=== PATIENT | female | born 1970 | race Caucasian/White ===

== ENCOUNTER 2017-03-07 12:58 | Emergency (ER) | payer OTHER, MEDICAID ==
[~2017-03-07] VITALS: Ht 160 cm; Wt 43.1 kg
[~2017-03-07 12:58] MED LIST: BENZ1TAB24 PO; BISA10SU1 RC; LACO100T PO; LAMO150T GT; LEVO500T6 GT; LORA10OD44 PO; MEGE40SU6 GT; ONDA8TAB13 PO; RANI-287 PO; SUCR1TAB35 PO; ZONI100C5 PO; [UNRECOGNIZED DRUG - CODE] PO; [UNRECOGNIZED DRUG - CODE] PO; [UNRECOGNIZED DRUG - CODE] PO; [UNRECOGNIZED DRUG - CODE] TP
[2017-03-07 13:01] VITALS: BP 120/72
--- NOTE | 2017-03-07 13:03 | NUR ---
Pt placed in bed 6 by EMS.
--- NOTE | 2017-03-07 13:18 | NUR ---
46/F biba from a boarding care facility for a dislodged g-tube. Per EMS, patient had received medications this morning and when staff went to start feeding on patient, g-tube was gone. EMS brought g-tube with patient, 24Fr with balloon inflated. Abdominal binder in place. No bleeding from stoma. Pt is awake and alert, non verbal, unable to make needs known. Contractures to all 4 extremities. Lungs clear bilaterally. Abdomen soft, hyperactive bowel sounds x4 quadrants. Pt in a brief. Incontinent of urine and bowel. Pt placed on cardiac tech, pulse oximetry, blood pressure monitoring. VSS.
[2017-03-07] MEDS ORDERED: LIDOCAINE JELLY 2% 30 ML TUBE TP ONE (14:10)
--- NOTE | 2017-03-07 14:30 | NUR ---
Dr. Ghosh at bedside for g-tube replacement. 18 Fr.
--- NOTE | 2017-03-07 14:52 | NUR ---
X-Ray at bedside.
--- NOTE | 2017-03-07 15:20 | NUR ---
Patient appears to be resting comfortably in bed. Vital Signs within normal limits. Respirations even and unlabored. Caregiver at bedside.
[2017-03-07 16:30] VITALS: BP 111/72
--- NOTE | 2017-03-07 16:31 | NUR ---
Patient discharged with v/s stable. Written and verbal after care instructions given and explained. Patient verbalized understanding. Ambulance Transport with to shelter. All questions addressed prior to discharge. Advised to follow up with PMD.
--- NOTE | 2017-03-07 17:35 | NUR ---
Pt still in bed, waiting to be picked up. Caregiver at bedside. [facility] to spanish moss picker patient at 1930.
--- NOTE | 2017-03-07 17:53 | NUR ---
Patient's brief changed. Pt placed back into her clothes. I updated caregiver on pick out hand time. Caregiver left. I advised her that she would be picked up at 1930. Pt placed in position of comfort.
--- NOTE | 2017-03-07 18:43 | NUR ---
Card Tender from [facility] arrived to pick up and delivery driver patient. [facility] transport cancelled.
--- NOTE | 2017-03-07 18:47 | NUR ---
Patient discharged with v/s stable. Written and verbal after care instructions given and explained. Patient verbalized understanding. Wheel Chair Assisted with to car. All questions addressed prior to discharge. Advised to follow up with PMD.
== END 2017-03-07 18:47 | disposition home or self-care (01) ==
LOC: MED 13:00
DX: Z43.1 Encounter for attention to gastrostomy (principal); Z88.0 Allergy status to penicillin; Z88.2 Allergy status to sulfonamides; Z88.1 Allergy status to other antibiotic agents
CPT/HCPCS: 43760; 74241; 99284

== ENCOUNTER 2017-12-21 05:40 | Emergency (ER) | payer OTHER, MEDICAID ==
[~2017-12-21] VITALS: Ht 154.9 cm; Wt 54.4 kg
[2017-12-21 05:40] VITALS: BP 91/58
[~2017-12-21 05:40] MED LIST changes: -BENZ1TAB24 PO; +BENZ1TAB42 PO; +BISM262O11 PO; +CALC-105 PO; -LEVO500T6 GT; -[UNRECOGNIZED DRUG - CODE] PO; -[UNRECOGNIZED DRUG - CODE] PO
--- NOTE | 2017-12-21 05:40 | NUR ---
PATIENT BIB BLS TO ER BED 11.
--- NOTE | 2017-12-21 05:40 | NUR ---
BIBA FOR GTT MALFUNCTION. PT DEVELOPMENTALLY DELAYED. NO N/V/D; LUNGS CLEAR BL; HR EVEN AND REGULAR; NO FEVER, CP, SOB, OR COUGH AT THIS TIME;NO NOTED PAIN NOTED AT THIS TIME; VSS; PATIENT POSITIONED FOR COMFORT; HOB ELEVATED; BEDRAILS UP X2; BED DOWN. ER MD MADE AWARE OF PT STATUS.
--- NOTE | 2017-12-21 05:45 | NUR ---
# [address] RIBEIRO. PT TOLERATED WELL.
--- NOTE | 2017-12-21 06:20 | NUR ---
X-Ray at bedside to verify GTT PLACEMENT
--- NOTE | 2017-12-21 07:25 | NUR ---
Patient discharged with v/s stable. Written and verbal after care instructions given and explained. Patient verbalized understanding. Ambulance Transport with to [facility]. All questions addressed prior to discharge. Advised to follow up with PMD.
[2017-12-21 07:26] VITALS: BP 100/66
== END 2017-12-21 07:25 | disposition home or self-care (01) ==
LOC: MED 05:40
DX: K94.23 Gastrostomy malfunction (principal); K21.9 Gastro-esophageal reflux disease without esophagitis; Z88.0 Allergy status to penicillin; Z88.1 Allergy status to other antibiotic agents; Z88.2 Allergy status to sulfonamides; Z88.8 Allergy status to other drugs, medicaments and biological substances
CPT/HCPCS: 43760; 74241; 99284; Q0092

== ENCOUNTER 2017-12-22 17:52 | Emergency (ER) | payer OTHER, MEDICAID ==
[~2017-12-22] VITALS: Ht 134.6 cm; Wt 46.7 kg
[2017-12-22 17:56] VITALS: BP 102/64
--- NOTE | 2017-12-22 18:02 | NUR ---
PT FROM [facility] G-TUBE DISLODGEMENT---EMS WAS NOT HANDED THE G-TUBE PT IN NAD, RESP EVEN AND UNLABORED, ON RA@98%. NO DRAINAGE NOTED FROM STOMA, C/D/I. NO BLEEDING. 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
--- NOTE | 2017-12-22 18:22 | NUR ---
DR SUTHERLAND AT BEDSIDE FOR GT INSERTION
--- NOTE | 2017-12-22 18:39 | NUR ---
EVELINE, FELLER HAND INFORMED OF DISCHARGE, IS CALLING AMBULANCE TO ARRANGE FOR TRANSFER.
--- NOTE | 2017-12-22 18:40 | NUR ---
XRAY AT BEDSIDE FOR POST GT PLACEMENT
--- NOTE | 2017-12-22 19:04 | NUR ---
WAITING FOR XRAY RESULTS, DR SORIANO UPDATED.
--- NOTE | 2017-12-22 19:10 | NUR ---
RECEIVED REPORT FROM KRYSTAL PIZANO
--- NOTE | 2017-12-22 19:40 | NUR ---
Patient discharged with v/s stable. Written and verbal after care instructions given and explained TO PRIMARY CAREGIVER. Patient verbalized understanding. Ambulatory with steady gait. All questions addressed prior to discharge. Advised to follow up with PMD.
--- NOTE | 2017-12-22 20:20 | NUR ---
PT PICKED UP BY [facility]SP[facility] BACK TO [facility]
[2017-12-22 20:22] VITALS: BP 106/67
== END 2017-12-22 20:20 ==
LOC: MED 17:52
DX: K94.23 Gastrostomy malfunction (principal); K21.9 Gastro-esophageal reflux disease without esophagitis; Z88.0 Allergy status to penicillin; Z88.2 Allergy status to sulfonamides; Z88.1 Allergy status to other antibiotic agents; Z88.8 Allergy status to other drugs, medicaments and biological substances
CPT/HCPCS: 43760; 74241; 99284; Q0092; C1758

== ENCOUNTER 2018-06-23 22:16 | Inpatient (IN) | payer OTHER, MEDICAID ==
[~2018-06-23] VITALS: Ht 162.6 cm; Wt 44.0 kg
[2018-06-23 22:16] VITALS: BP 95/51
[~2018-06-23 22:16] MED LIST changes: -BENZ1TAB42 PO; +BENZ1TAB99 PO
--- NOTE | 2018-06-23 22:16 | NUR ---
PATIENT BIB BLS TO ER BED 9.
--- NOTE | 2018-06-23 22:16 | NUR ---
47/F BIBA FROM PT BIBA FOR WITNESSED SEIZURE X15 SECONDS. LAST SEIZURE WAS SEVERAL YEARS AGO. NO ORAL TRAUMA OR OTHER INJURIES NOTED. NO RESPIRATORY DISTRESS. SEZIURE PRECAUTIONS IMPLEMENTED. PMH---HYDROCEPHALUS, MENTAL DISABILITY, SZ, VNS, CONSTIPATION, NEUROGENIC BLADDER, GASTRITIS, PNEUMONIA, OSTEOPEROSIS
[2018-06-23] MEDS ORDERED: NACL 0.9% 1,000 ML IV ONE (22:40)
[2018-06-23] MEDS ORDERED: VITD1000 GT (22:53)
[2018-06-23] MEDS ORDERED: CALC-53 GT (22:53)
[2018-06-23] MEDS ORDERED: MULT-405 PO (22:53)
[2018-06-23] MEDS ORDERED: DOCU100C16 GT (22:53)
[2018-06-23] MEDS ORDERED: PRO5 GT (22:53)
[2018-06-23] MEDS ORDERED: LAM200 GT (22:53)
[2018-06-23] MEDS ORDERED: MIRABULK GT (22:53)
[2018-06-23] MEDS ORDERED: ASPI81CT89 GT (22:53)
[2018-06-23 23:03] LABS: BASOPHILS # (AUTO) 0.1 K/uL (0.00-0.22); BASOPHILS % (AUTO) 0.8 % (0.0-2.0); EOSINOPHILS % (AUTO) 0.4 % (0.0-4.0); HEMATOCRIT 39.2 % (36-48); HEMOGLOBIN 13.3 g/dL (12.0-16.0); LYMPHOCYTES # (AUTO) 0.8 K/uL (2.5-16.5); MEAN CORPUSCULAR HEMOGLOBIN 33 pg (27-31); MEAN CORPUSCULAR HGB CONC 34 g/dL (33-37); MEAN CORPUSCULAR VOLUME 95.5 fL (80-94); MONOCYTES # (AUTO) 0.5 K/uL (0.8-1.0); MONOCYTES % (AUTO) 5.8 % (1.7-9.3); NEUTROPHILS # (AUTO) 7.8 K/uL (1.8-7.7); NEUTROPHILS % (AUTO) 84.2 % (42.2-75.2); PLATELET COUNT (AUTO) 259 K/uL (140-450); RED BLOOD CELL COUNT(AUTO) 4.11 MIL/uL (4.20-5.40); RED CELL DISTRIBUTION WIDTH 13.2 % (11.6-13.7); WHITE BLOOD COUNT (AUTO) 9.3 K/uL (4.8-10.8)
[2018-06-23 23:17] LABS: ANION GAP 15.4 (8-16); CARBON DIOXIDE 22.7 mmol/L (21-32); CREATININE 0.5 mg/dL (0.6-1.3); POTASSIUM 4.1 mmol/L (3.5-5.1)
[2018-06-23 23:22] LABS: LYMPHOCYTES % (AUTO) 8.8 % (20.5-51.1)
[2018-06-23 23:26] LABS: ALBUMIN 3.3 g/dL (3.4-5.0); PROTHROMBIN TIME 9.3 secs (10.8-13.4); TOTAL BILIRUBIN 0.3 mg/dL (0.0-1.0)
[2018-06-24] LABS: BILIRUBIN,URINE NEGATIVE (NEGATIVE); BLOOD, URINE 3+ (NEGATIVE); COLOR,URINE YELLOW (YELLOW); LEUKOCYTE ESTERASE ,URINE TRACE (NEGATIVE); UGLUCOSE NEGATIVE (NEGATIVE)
[2018-06-24] MEDS ORDERED: ERTAPENEM SODIUM 1,000 MG in NACL 0.9% 50 ML IV ONE ×2
[2018-06-24] MEDS ORDERED: ERTAPENEM SODIUM 1,000 MG VIAL IV ONE (00:10)
[2018-06-24 00:11] LABS: RBC,URINE 0-5 (RARE) /HPF (0-5); WBC,URINE 0-5 (RARE) /HPF (0-5)
--- NOTE | 2018-06-24 00:20 | NUR ---
Patient appears to be resting comfortably in bed. Respirations even and unlabored. NO FURTHER SEIZURES NOTED. CAREGIVER AT BEDSIDE
[2018-06-24] MEDS ORDERED: LORazepam 2 MG/ML VIAL IM/IVP PRN (00:55)
[2018-06-24] MEDS ORDERED: DOCUSATE SODIUM 100 MG GELCAP PO PRN (00:55)
[2018-06-24] MEDS ORDERED: ACETAMINOPHEN 325 MG TAB PO PRN (00:55)
[2018-06-24] MEDS ORDERED: ONDANSETRON 4 MG/2 ML VIAL IM/IVP PRN (00:55)
[2018-06-24] MEDS ORDERED: MORPHINE SULFATE 2 MG/ML SYR IVP PRN (00:55)
[2018-06-24] MEDS ORDERED: ZOLPIDEM 5 MG TAB PO PRN (00:55)
[2018-06-24] MEDS ORDERED: HYDROcodone/APAP 5/325 MG 1 TAB TAB PO PRN (00:55)
--- NOTE | 2018-06-24 01:20 | NUR ---
APatient will be admitted to care of [facility]. Admited to ICU. Will go to room 1. Belongings list completed. Report to RICKEY PIZANO.
[2018-06-24 01:25] VITALS: BP 116/84
--- NOTE | 2018-06-24 01:25 | NUR ---
PT ARRIVED ON UNIT VIA GURNEY. AFEBRILE. AOX0. APHASIC. OPENS EYES SPONTANEOUSLY. NONTRACKING. R SHUNT FOR VAGAL NERVE STIMULATION NOTED. LUNG SOUNDS DIMINISHED BILAT. ROOM AIR. SINUS SISI ON MONITOR. NO EDEMA NO JVD NOTED. NPO EXCEPT MEDS. GTUBE PATENT. NO RESIDUAL NOTED. INCONTINENT TO BOWEL AND BLADDER. IV SITE L WRIST 22G. SEIZURE PRECAUTIONS IMPLEMENTED. CONTACT PRECAUTIONS IMPLEMENTED. SKIN WARM, DRY, INTACT. NO SIGNS OF ACUTE DISTRESS. BED IN LOWEST POSITION. SR UP X 4. CALL LIGHT WITHIN REACH. WILL CONTINUE TO MONITOR
[2018-06-24 01:35] LABS: APPEARANCE,URINE CLOUDY (CLEAR); NITRITE, URINE POSITIVE (NEGATIVE)
[2018-06-24 01:43] LABS: BARBITURATE, URINE NEG. ng/ml (NEG <=200); BENZODIAZEPINE, URINE NEG. ng/mL (NEG <=200); CANNABINOID, URINE NEG. ng/mL (NEG <=50); COCAINE, URINE NEG. ng/mL (NEG <=300); OPIATE, URINE NEG. ng/mL (NEG <=2000); PHENCYCLIDINE SCREEN,URINE NEG. ng/mL (NEG <=25)
[2018-06-24] MEDS: NACL 0.9% 1,000 ML IV SCH ×2 (01:45→13:22)
[2018-06-24 01:52] LABS: FREE T4 (FREE THYROXINE) 1.05 ng/dL (0.76-1.46); MAGNESIUM 1.6 mg/dL (1.8-2.4); PHOSPHORUS 2.5 mg/dL (2.5-4.9); THYROID STIMULATING HORMONE 0.36 uIU/mL (0.34-3.74)
--- NOTE | 2018-06-24 02:30 | NUR ---
DR SELLERS AT BEDSIDE TO EVALUATE PATIENT. WILL CONTINUE TO FOLLOW UP ANY ADDITIONAL ORDERS.
[2018-06-24] MEDS ORDERED: MAG SULF 2000 MG/WATER PREMIX 50 ML IV ONE (03:30)
--- NOTE | 2018-06-24 03:33 | NUR ---
PT TRANSPORTED TO RADIOLOGY DEPARTMENT FOR CT SCAN ORDER.
--- NOTE | 2018-06-24 03:45 | NUR ---
STARTED FEEDING JEVITY 1.2 @ 65ML/HR WITH H20 100ML Q6H.
--- NOTE | 2018-06-24 03:45 | NUR ---
MG LEVEL 1.6. MAG SULFATE GIVEN ORDERED.
[2018-06-24 04:00] VITALS: BP 146/97
--- NOTE | 2018-06-24 04:46 | NUR ---
RECEIVED A CALL FROM DR. SELLERS TO INCREASE IV FLUID TO 100ML/HR.
[2018-06-24] MEDS: MIDODRINE 5 MG TAB GT SCH ×3 (05:00→20:04)
--- NOTE | 2018-06-24 05:06 | NUR ---
LAB AT BEDSIDE AT THIS TIME. NO SIGNS OF ACUTE DISTRESS NOTED. WILL CONTINUE TO FOLLOW UP LAB RESULTS.
--- NOTE | 2018-06-24 06:40 | NUR ---
PT REMOVED IV AT THIS TIME. ATTEMPTING TO REINSERT IV
--- NOTE | 2018-06-24 07:05 | NUR ---
ENDORSED CARE TO INCOMING SHIFT. PT CLEAN AND DRY. BED IN LOWEST POSITION.
--- NOTE | 2018-06-24 07:05 | NUR ---
RECEIVED REPORT FROM RICKEY PIZANO. PT IS AWAKE; A&0X4; NONVERBAL BUT MAKES NOISES. PT IS CONTRACTED ON UPPER AND LOWER EXTREMITIES. 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 PERRL. PT DOES NOT FOLLOW COMMANDS. PT HAS DIMINISHED BREATH SOUNDS BILATERALLY; PT IS ON ROOM AIR. PT HAS A G-TUBE; FEEDING ON JEVITY 1.2 [place]. G-TUBE PORT IS ASYMPTOMATIC, SKIN IS INTACT AND NOT REDDENED.; ZERO RESIDUALS; BOWEL SOUNDS ACTIVE AND PRESENT IN ALL 4 QUADRANTS. S1S2 HEARD; NO EXTRA HEART SOUNDS; NO MURMUR PRESENT. PT IS INCONTINENT TO BOWEL AND BLADDER. PT HAS A ROAD CONDUCTOR SHUNT PALPABLE AT THE BASE OF HER SKULL ON THE POSTERIOR RIGHT SIDE. PT HAS A VAGAL NERVE STIMULATOR ON HER LEFT CHEST (SCAR PRESENT). PT HAS SCDS ON. BED LOCKED AND IN LOWEST POSITION. CALL LIGHT WITHIN REACH.
--- NOTE | 2018-06-24 07:49 | NUR ---
THE SPEEDER FRAME TENDER OF THE HOME THAT THE PT LIVES IN BROUGHT BY THE PATIENTS HOME MEDICATION. WILL GIVE TO PHARMACY Addendum: 06/24/18 at 1002 by January Karimi RN SPEEDER FRAME TENDER ALSO BROUGHT PT'S VNS MAGNET; AT BESIDE LABELED WITH PT'S NAME.
[2018-06-24 08:00] VITALS: BP 101/68
--- NOTE | 2018-06-24 08:34 | NUR ---
GAVE PTS HOME MEDICATION TO PHARMACY
[2018-06-24] MEDS ORDERED: HYDRAGUARD CREAM TP PRN (08:40)
--- NOTE | 2018-06-24 08:49 | NUR ---
LAB AT BEDSIDE
[2018-06-24] MEDS ORDERED: VITAMIN D3 GT SCH (09:00)
[2018-06-24] MEDS ORDERED: BENZTROPINE 1 MG TAB PO SCH (09:00)
[2018-06-24] MEDS ORDERED: Zonisamide 100 MG CAPSULES GT SCH (09:00)
[2018-06-24] MEDS ORDERED: CALCIUM CARBONATE GT SCH (09:00)
[2018-06-24] MEDS ORDERED: [UNRECOGNIZED DRUG - OTHER] GT SCH (09:00)
[2018-06-24] MEDS ORDERED: DOCUSATE SODIUM 250 MG GT SCH (09:00)
[2018-06-24] MEDS ORDERED: MULTIVITAMIN PO SCH (09:00)
[2018-06-24] MEDS: CHLORHEXADINE GLUC 2% CLOTH TP SCH (09:00)
[2018-06-24 09:32] LABS: ANION GAP 13.2 (8-16); CARBON DIOXIDE 22.4 mmol/L (21-32); CREATININE 0.5 mg/dL (0.6-1.3); POTASSIUM 3.6 mmol/L (3.5-5.1)
[2018-06-24 09:33] LABS: MAGNESIUM 2.7 mg/dL (1.8-2.4); PHOSPHORUS 2.1 mg/dL (2.5-4.9)
[2018-06-24 09:34] LABS: CHOL/HDL RATIO 2.3 (1-4.5)
--- NOTE | 2018-06-24 09:42 | NUR ---
ULTRASOUND AT BEDSIDE.
--- NOTE | 2018-06-24 09:49 | NUR ---
PATIENT HAS BEEN SCREENED AND CATEGORIZED HIGH NUTRITION RISK. PATIENT WILL BE SEEN WITHIN 1-2 DAYS OF ADMISSION. 06/24/18 06/25/18 ELISABET SHEPPARD MBA, RD
--- NOTE | 2018-06-24 10:00 | NUR ---
SEIZURE RAIL PADS APPLIED TO RAILS AND PRECAUTION SIGN POSTED.
[2018-06-24] MEDS: POLYETHYLENE GLYCOL 17 GM/PKT GT SCH (10:22)
[2018-06-24] MEDS: MULTIVITAMIN 5 ML ORASYR GT SCH (10:22)
[2018-06-24] MEDS: ASPIRIN 81 MG TAB.CHEW GT SCH (10:23)
[2018-06-24] MEDS: FAMOTIDINE 20 MG TAB GT SCH (10:24)
[2018-06-24] MEDS: NEOMYCIN/POLYMYXIN/HC OT SOL. 10 ML BTL RIGHT EAR SCH ×4 (10:24→20:05)
[2018-06-24] MEDS: CHOLECALCIFEROL 1,000 IU TAB GT SCH (10:25)
[2018-06-24] MEDS: MUPIROCIN CA NASAL 2% 1GM TUBE NS SCH (10:27)
[2018-06-24] MEDS: LACTOBACILLUS RHAMNOSUS GG 1 EACH CAP GT SCH (10:27)
[2018-06-24] MEDS: DOCUSATE 100 MG/10 ML UDC GT SCH (10:28)
[2018-06-24] MEDS: BENZTROPINE 1 MG TAB PO SCH ×2 (10:29→20:04)
[2018-06-24] MEDS: CALCIUM CARB/VIT-D 500 MG/200 IU 1 TAB GT SCH (10:30)
[2018-06-24] MEDS: TAMSULOSIN 0.4 MG CAP PO SCH (10:47)
[2018-06-24 12:00] VITALS: BP 113/60
--- NOTE | 2018-06-24 12:37 | NUR ---
Pt is alert, FLACC 0. Pt is positioned for comfort, bed locked and in lowest position, call light within reach
--- NOTE | 2018-06-24 14:00 | NUR ---
Pt is sleeping; FLACC 0
--- NOTE | 2018-06-24 14:29 | NUR ---
Dr. Ponce came to see pt. Addendum: 06/24/18 at 1633 by January Karimi RN Dr. Ponce feels the pt is okay to be d/c based upon current neurological condition (not having seizures since last night) once UTI is cleared. Does not suggest a change of medication.
[2018-06-24 16:00] VITALS: BP 93/37
--- NOTE | 2018-06-24 16:55 | NUR ---
Gave pt a bed bath, lotion, changed bedding and gown. Repositioned pt, bed locked and lowered, side rails elevated, alarm on. Call light within reach
[2018-06-24 17:31] LABS: BASOPHILS % (AUTO) 0.3 % (0.0-2.0); EOSINOPHILS % (AUTO) 0.2 % (0.0-4.0); HEMATOCRIT 39.7 % (36-48); LYMPHOCYTES # (AUTO) 1.7 K/uL (2.5-16.5); LYMPHOCYTES % (AUTO) 13.1 % (20.5-51.1); MEAN CORPUSCULAR HEMOGLOBIN 32 pg (27-31); MEAN CORPUSCULAR HGB CONC 33 g/dL (33-37); MEAN CORPUSCULAR VOLUME 97.4 fL (80-94); MONOCYTES # (AUTO) 2.3 K/uL (0.8-1.0); MONOCYTES % (AUTO) 17.9 % (1.7-9.3); NEUTROPHILS # (AUTO) 8.9 K/uL (1.8-7.7); NEUTROPHILS % (AUTO) 68.5 % (42.2-75.2); PLATELET COUNT (AUTO) 214 K/uL (140-450); RED BLOOD CELL COUNT(AUTO) 4.08 MIL/uL (4.20-5.40); RED CELL DISTRIBUTION WIDTH 13.5 % (11.6-13.7)
--- NOTE | 2018-06-24 18:45 | NUR ---
Pt resting; arouses to name being called. Repositioned pt.
--- NOTE | 2018-06-24 19:08 | NUR ---
RECEIVED REPORT FROM AM NURSE. PT CLEAN AND DRY. AOX0. APHASIC. NO SIGNS OF ACUTE DISTRESS NOTED. AFEBRILE. FLACC 0. RADIO DIVISION CAPTAIN SHUNT L NOTED. LUNG SOUNDS CLEAR. ON ROOM AIR. SINUS RHYTHM ON MONITOR. GTUBE TO LUQ. ABD SOFT, NONTENDER, GTUBE PATENT. ON JEVITY 1.2 @65ML/HR WITH 100ML H20 Q6H. IV SITE R WRIST 24G. SKIN REDNESS NOTED THROUGHOUT PERIAREA. BED IN LOWEST POSITION. SIDE RAILS UP X4. SEIZURE PRECAUTIONS IMPLEMENTED. ON CONTACT PRECAUTION FOR HX MRSA. CALL LIGHT WITHIN REACH. WILL CONTINUE TO MONITOR.
[2018-06-24 20:00] VITALS: BP 120/62
[2018-06-24] MEDS: ZONISAMIDE 100 MG GT SCH (20:04)
--- NOTE | 2018-06-24 20:15 | NUR ---
PT REPOSITIONED AT THIS TIME. NO SIGNS OF ACUTE DISTRESS NOTED.
--- NOTE | 2018-06-24 21:58 | NUR ---
PT REPOSITIONED AT THIS TIME. NO SIGNS OF ACUTE DISTRESS NOTED.
[2018-06-25] VITALS: BP 89/50
--- NOTE | 2018-06-25 00:26 | NUR ---
NEW FEEDING TUBE CHANGED. PATIENT REPOSITIONED. NO SIGNS OF ACUTE DISTRESS AT THIS TIME.
--- NOTE | 2018-06-25 00:51 | NUR ---
PATIENT CHANGED AND REPOSITIONED AT THIS TIME.
[2018-06-25] MEDS: NACL 0.9% 1,000 ML IV SCH ×3 (01:50→12:23)
[2018-06-25 04:00] VITALS: BP 87/44
--- NOTE | 2018-06-25 04:08 | NUR ---
PT ASLEEP AT THIS TIME. FLACC 0. NO SIGNS OF ACUTE DISTRESS NOTED. PT REPOSITIONED TO RIGHT SIDE
--- NOTE | 2018-06-25 04:34 | NUR ---
LAB AT BEDSIDE TO DO AM BLOOD DRAWS. NO SIGNS OF ACUTE DISTRESS NOTED. WILL FOLLOW UP ANY ABNORMAL VALUES.
[2018-06-25 05:01] LABS: BASOPHILS # (AUTO) 0.1 K/uL (0.00-0.22); EOSINOPHILS # (AUTO) 0.1 K/uL (0-0.4); HEMATOCRIT 36.9 % (36-48); RED CELL DISTRIBUTION WIDTH 13.6 % (11.6-13.7)
[2018-06-25 05:03] LABS: BASOPHILS % (AUTO) 0.8 % (0.0-2.0); HEMOGLOBIN 12.3 g/dL (12.0-16.0); LYMPHOCYTES # (AUTO) 2.1 K/uL (2.5-16.5); LYMPHOCYTES % (AUTO) 20.8 % (20.5-51.1); MEAN CORPUSCULAR HEMOGLOBIN 33 pg (27-31); MEAN CORPUSCULAR HGB CONC 33 g/dL (33-37); MEAN CORPUSCULAR VOLUME 97.8 fL (80-94); MONOCYTES # (AUTO) 0.9 K/uL (0.8-1.0); NEUTROPHILS # (AUTO) 6.9 K/uL (1.8-7.7); NEUTROPHILS % (AUTO) 68.4 % (42.2-75.2); PLATELET COUNT (AUTO) 206 K/uL (140-450); RED BLOOD CELL COUNT(AUTO) 3.77 MIL/uL (4.20-5.40); WHITE BLOOD COUNT (AUTO) 10.1 K/uL (4.8-10.8)
[2018-06-25] MEDS: ERTAPENEM SODIUM 1,000 MG in NACL 0.9% 50 ML IV SCH (05:05)
[2018-06-25] MEDS: MIDODRINE 5 MG TAB GT SCH ×3 (05:05→20:30)
[2018-06-25] MEDS: Zonisamide 100 MG CAPSULES GT SCH (06:02)
--- NOTE | 2018-06-25 06:32 | NUR ---
TRANSFERRED PT TO [facility] VIA GURNEY. NO SIGNS OF ACUTE DISTRESS NOTED. REPORT GIVEN TO [facility] NURSE FOR CONTINUITY OF CARE
--- NOTE | 2018-06-25 06:35 | NUR ---
RECEIVED PATIENT TRANSFERRED FROM ICU VIA BED. PATIENT IN STABLE CONDITION. V/S TAKEN AND RECORDED. SEIZURE PRECAUTION APPLIED. NO S/S OF DISTRESS NOTED AT THIS TIME. WILL CONTINUE TO MONITOR.
[2018-06-25 07:07] LABS: ANION GAP 13.4 (8-16); CARBON DIOXIDE 19.9 mmol/L (21-32); CREATININE 0.5 mg/dL (0.6-1.3); POTASSIUM 3.3 mmol/L (3.5-5.1)
[2018-06-25 07:11] LABS: MAGNESIUM 1.8 mg/dL (1.8-2.4); PHOSPHORUS 1.6 mg/dL (2.5-4.9)
--- NOTE | 2018-06-25 07:20 | NUR ---
ENDORSEMENT GIVEN TO AM SHIFT NURSE AT BEDSIDE FOR CONTINUITY OF CARE. PATIENT IN STABLE CONDITION.
--- NOTE | 2018-06-25 07:21 | NUR ---
RECEIVED REPORT FROM THE PRODUCT SCIENTIST NURSE AT BEDSIDE FOR CONTINUITY OF CARE. PT WAS A TRANSFER FROM ICU EARLY THIS MORNING. PT IS AWAKE, NOT ORIENTED. PT HAS MENTAL DELAY. INTRODUCED MYSELF AND UPDATED THE BOARD. PT HAS GTUBE FEEDING: JEVITY 65ML/HR. H20 100ML/Q6HR. SCD'S IN PLACE. IV ON R FA 24G NS 100ML INFUSING. L ARM SHUNT. SKIN INTACT. PLAN FOR TODAY: D/C TODAY BACK TO BOARD AND CARE. WILL CONTINUE TO MONITOR PT. Addendum: 06/25/18 at 1028 by Zoë Cho RN NOT A L ARM SHUNT. IT IS A STOCK LIFTER SHUNT IN THE BRAIN FOR PT'S HX OF HYDROCEPHALUS.
[2018-06-25 08:00] VITALS: BP 110/56
[2018-06-25] MEDS: ASPIRIN 81 MG TAB.CHEW GT SCH (09:24)
[2018-06-25] MEDS: LACTOBACILLUS RHAMNOSUS GG 1 EACH CAP GT SCH (09:24)
[2018-06-25] MEDS: DOCUSATE 100 MG/10 ML UDC GT SCH (09:25)
[2018-06-25] MEDS: FAMOTIDINE 20 MG TAB GT SCH (09:26)
[2018-06-25] MEDS: POLYETHYLENE GLYCOL 17 GM/PKT GT SCH (09:26)
[2018-06-25] MEDS: CHOLECALCIFEROL 1,000 IU TAB GT SCH (09:27)
[2018-06-25] MEDS: MULTIVITAMIN 5 ML ORASYR GT SCH (09:27)
[2018-06-25] MEDS: TAMSULOSIN 0.4 MG CAP PO SCH (09:28)
[2018-06-25] MEDS: BENZTROPINE 1 MG TAB PO SCH ×2 (09:28→20:30)
[2018-06-25] MEDS: MUPIROCIN CA NASAL 2% 1GM TUBE NS SCH (09:28)
[2018-06-25] MEDS: CALCIUM CARB/VIT-D 500 MG/200 IU 1 TAB GT SCH (09:29)
[2018-06-25] MEDS ORDERED: POTASSIUM CHLORIDE 10 MEQ TABER PO SCH (09:30)
[2018-06-25] MEDS: CHLORHEXADINE GLUC 2% CLOTH TP SCH (09:37)
[2018-06-25] MEDS: NEOMYCIN/POLYMYXIN/HC OT SOL. 10 ML BTL RIGHT EAR SCH ×4 (09:39→20:30)
[2018-06-25] MEDS ORDERED: POTASSIUM CHLORIDE 20% 40 MEQ/15 ML UDC GT SCH (10:00)
--- NOTE | 2018-06-25 10:00 | NUR ---
SCHEDULED MORNING MEDS WERE ADMINISTERED BY RN STUDENT AND INSTRUCTOR. PT TOLERATED WELL. REDRESSED THE GTUBE. WILL CONTINUE TO MONITOR PT.
[2018-06-25 12:00] VITALS: BP 95/52
[2018-06-25] MEDS: SODIUM PHOS / POTASSIUM PHOS 1 PKT PDR PO SCH ×2 (12:23→17:05)
--- NOTE | 2018-06-25 12:25 | NUR ---
ADMINISTERED SCHEDULED MEDS AND HUNG NEW IVF. CHECKED FOR PLACEMENT, RESIDUAL: 100ML, AND PATENTCY. PT TOLERATED WELL. WILL RESUME FEEDING. WILL CONTINUE TO MONITOR PT.
--- NOTE | 2018-06-25 12:49 | NUR ---
LEXI CASTILLO CALLED TO FIND OUT HOW PT IS DOING AND ALSO WANTED TO KNOW ABOUT D/C. PER MD, PT WILL HE D/C TOMORROW BACK TO HER BOARD AND CARE. WILL LET THEM KNOW ONCE THERE IS AN ORDER FOR TRANSPORTATION. WILL CONTINUE TO MONITOR PT. PT IS CURRENTLY RESTING COMFORTABLY.
--- NOTE | 2018-06-25 13:08 | NUR ---
06/25/18 RD INITIAL ASSESSMENT COMPLETED PLEASE REFER TO NUTRITION ASSESSMENT UNDER CARE ACTIVITY FOR ESTIMATED NUTRITIONAL NEEDS. 1. CONTINUE JEVITY AT 65 ML/HR -THIS WILL PROVIDE 1560 ML OF VOLUME, 1872 KCAL, & 85 GM OF PROTEIN, WHICH MEETS 100% OF ESTIMATED NEEDS. 2. CONTINUE [address] TO FOLLOW-UP 2-3 DAYS, HIGH RISK TERI PRECIADO, RD
[2018-06-25 16:00] VITALS: BP 102/59
--- NOTE | 2018-06-25 17:12 | NUR ---
ADMINISTERED SCHEDULED MED. WHEN CHECKING FOR RESIDUAL, >200ML. WILL HOLD FEEDING FOR 1 HR AND RECHECK. WILL CONTINUE TO MONITOR PT.
--- NOTE | 2018-06-25 18:40 | NUR ---
ADMINISTERED SCHEDULED MED. TOLERATED WELL. CHECKED FOR RESIDUAL. NONE. RESTARTED FEEDING. WILL CONTINUE TO MONITOR PT.
--- NOTE | 2018-06-25 19:20 | NUR ---
ENDORSED PT TO THE CHIEF SCHOOL FINANCE OFFICER NURSE AT BEDSIDE FOR CONTINUITY OF CARE. PT IN STABLE CONDITION.
--- NOTE | 2018-06-25 19:25 | NUR ---
RECEIVED REPORT FROM DAY SHIFT RN FOR CONTINUITY OF CARE. PT IS APHASIC, ON ROOM AIR. PT HAS A HISTORY OF HYDROCEPHALUS AND HAS A VC SHUNT. PT IS UNABLE TO MAKE NEEDS KNOWN, UNABLE TO FOLLOW COMMANDS. PT IS BEDBOUND AND INCONTINENT, BUT SKIN IS INTACT. PT HAS A 24G IV TO RIGHT HAND, ASYMPTOMATIC. VITAL SIGNS WITHIN NORMAL LIMITS. PT STABLE, NO SIGNS OF DISTRESS NOTED AT THIS TIME. BED IN LOWEST POSITION, BED ALARM ON. CALL LIGHT WITHIN REACH, WILL CONTINUE TO MONITOR.
[2018-06-25 20:00] VITALS: BP 110/64
[2018-06-25] MEDS: ZONISAMIDE 100 MG GT SCH (20:31)
--- NOTE | 2018-06-25 20:31 | NUR ---
ABOUT 120ML RESIDUAL NOTED, CONTINUED TO ADMINISTERED SCHEDULED MEDICATIONS, WITH WATER FLUSH IN BETWEEN OF 10ML AND THEN 50ML AT THE END OF MEDICATIONS, PT TOLERATED WELL. CONTINUED FEEDING PER ORDER. WILL CONTINUE TO CHECK RESIDUAL.
--- NOTE | 2018-06-25 22:25 | NUR ---
PT HAD VERY LARGE WATERY BM, PT WAS CLEANED AND REPOSITIONED AGAIN. PT STABLE, NO SIGNS OF DISTRESS NOTED AT THIS TIME. BED IN LOWEST POSITION, BED ALARM ON. CALL LIGHT WITHIN REACH, WILL CONTINUE TO MONITOR.
[2018-06-26] VITALS: BP 99/63
--- NOTE | 2018-06-26 | NUR ---
VITAL SIGNS WITHIN NORMAL LIMITS. PT STABLE, NO SIGNS OF DISTRESS NOTED AT THIS TIME. BED IN LOWEST POSITION, BED ALARM ON. CALL LIGHT WITHIN REACH, WILL CONTINUE TO MONITOR.
--- NOTE | 2018-06-26 02:30 | NUR ---
PT HAD ANOTHER WATERY BM. PT WAS CLEANED AND REPOSITIONED.
[2018-06-26 04:00] VITALS: BP 123/72
[2018-06-26] MEDS: ERTAPENEM SODIUM 1,000 MG in NACL 0.9% 50 ML IV SCH (05:14)
[2018-06-26] MEDS: MIDODRINE 5 MG TAB GT SCH ×3 (05:14→20:37)
[2018-06-26] MEDS: NACL 0.9% 1,000 ML IV SCH ×2 (05:15→14:27)
--- NOTE | 2018-06-26 05:15 | NUR ---
PT REMOVED IV, CATHETER INTACT, MINIMAL BLEEDING. STARTED NEW 22G IV TO RIGHT UPPER ARM. PT TOLERATED WELL.
[2018-06-26] MEDS: Zonisamide 100 MG CAPSULES GT SCH (06:03)
--- NOTE | 2018-06-26 06:03 | NUR ---
ADMINISTERED SCHEDULED MEDICATIONS, PT TOLERATED WELL.
[2018-06-26 07:35] LABS: BASOPHILS # (AUTO) 0.1 K/uL (0.00-0.22); BASOPHILS % (AUTO) 1.2 % (0.0-2.0); EOSINOPHILS # (AUTO) 0.2 K/uL (0-0.4); EOSINOPHILS % (AUTO) 2.3 % (0.0-4.0); HEMATOCRIT 37.1 % (36-48); HEMOGLOBIN 12.6 g/dL (12.0-16.0); LYMPHOCYTES # (AUTO) 2.2 K/uL (2.5-16.5); LYMPHOCYTES % (AUTO) 29.6 % (20.5-51.1); MEAN CORPUSCULAR HEMOGLOBIN 33 pg (27-31); MEAN CORPUSCULAR HGB CONC 34 g/dL (33-37); MEAN CORPUSCULAR VOLUME 97.6 fL (80-94); MONOCYTES # (AUTO) 0.7 K/uL (0.8-1.0); MONOCYTES % (AUTO) 9.1 % (1.7-9.3); NEUTROPHILS # (AUTO) 4.3 K/uL (1.8-7.7); NEUTROPHILS % (AUTO) 57.8 % (42.2-75.2); PLATELET COUNT (AUTO) 221 K/uL (140-450); RED BLOOD CELL COUNT(AUTO) 3.81 MIL/uL (4.20-5.40); RED CELL DISTRIBUTION WIDTH 13.4 % (11.6-13.7); WHITE BLOOD COUNT (AUTO) 7.5 K/uL (4.8-10.8)
--- NOTE | 2018-06-26 07:40 | NUR ---
ENDORSED PT IN STABLE CONDITION TO DAY SHIFT RN FOR CONTINUITY OF CARE.
--- NOTE | 2018-06-26 07:41 | NUR ---
REPORT RECEIVED FROM PEG DRIVER NURSE. PATIENT IS AWAKE AND ALERT APPEARS IN NO ACUTE DISTRESS. RESPIRATION EVEN UNLABORED ON ROOM AIR. SKIN WARM AND DRY. COLOR WITHIN NORMAL LIMITS. IV FLUSHED POSITION CHANGED INFUSING WELL WITHOUT SIGNS OF INFILTRATION. ANTIBIOTIC INFUSING. PLAN OF CARE REVIEWED. ALL SAFETY MEASURES IN PLACE WILL CONTINUE TO MONITOR
[2018-06-26 07:45] LABS: ANION GAP 11.4 (8-16); CARBON DIOXIDE 20.1 mmol/L (21-32); CREATININE 0.3 mg/dL (0.6-1.3); POTASSIUM 3.5 mmol/L (3.5-5.1)
[2018-06-26 08:00] VITALS: BP 107/63
[2018-06-26 08:53] LABS: MAGNESIUM 1.6 mg/dL (1.8-2.4); PHOSPHORUS 2.2 mg/dL (2.5-4.9)
[2018-06-26] MEDS: CHOLECALCIFEROL 1,000 IU TAB GT SCH (08:59)
[2018-06-26] MEDS: TAMSULOSIN 0.4 MG CAP PO SCH (08:59)
[2018-06-26] MEDS ORDERED: POTASSIUM CHLORIDE 10 MEQ TABER PO SCH (09:00)
[2018-06-26] MEDS: BENZTROPINE 1 MG TAB PO SCH ×2 (09:00→20:37)
[2018-06-26] MEDS: POLYETHYLENE GLYCOL 17 GM/PKT GT SCH (09:00)
[2018-06-26] MEDS: DOCUSATE 100 MG/10 ML UDC GT SCH (09:00)
[2018-06-26] MEDS: LACTOBACILLUS RHAMNOSUS GG 1 EACH CAP GT SCH (09:00)
[2018-06-26] MEDS: MUPIROCIN CA NASAL 2% 1GM TUBE NS SCH (09:00)
[2018-06-26] MEDS: ASPIRIN 81 MG TAB.CHEW GT SCH (09:00)
[2018-06-26] MEDS: FAMOTIDINE 20 MG TAB GT SCH (09:00)
[2018-06-26] MEDS: CHLORHEXADINE GLUC 2% CLOTH TP SCH (09:00)
[2018-06-26] MEDS: SODIUM PHOS / POTASSIUM PHOS 1 PKT PDR PO SCH ×3 (09:01→17:51)
[2018-06-26] MEDS: MULTIVITAMIN 5 ML ORASYR GT SCH (09:01)
[2018-06-26] MEDS: CALCIUM CARB/VIT-D 500 MG/200 IU 1 TAB GT SCH (09:01)
[2018-06-26] MEDS: POTASSIUM CHLORIDE 20% 40 MEQ/15 ML UDC GT SCH (09:01)
[2018-06-26] MEDS: NEOMYCIN/POLYMYXIN/HC OT SOL. 10 ML BTL RIGHT EAR SCH ×4 (09:07→20:38)
--- NOTE | 2018-06-26 09:34 | NUR ---
DUE MEDS GIVEN VIA G TUBE. RESIDUAL 20CC PATIENT TOLERATED WELL. WOUND CARE NURSE AT BESIDE.
--- NOTE | 2018-06-26 10:16 | NUR ---
WOUND CARE EVALUATION NOTE: REASON FOR EVALUATION: LOW JAVIER SCORE SKIN ASSESSMENT DONE WITH PRIMARY RN WITH THIS 47 Y/O FEMALE SKIN CLEAN NO REDNESS, GT SITE CHIDI-STOMA SKIN DRY AND INTACT. RECOMMENDATIONS: -KEEP SKIN DRY AND CLEAN AT ALL TIMES, PLEASE CHECK Q2H AND PRN FOR INCONTINENCY OF BOWEL AND BLADDER. -APPLY HEEL RAISER TO RIGHT HEEL AT ALL TIMES -OFFLOAD BILATERAL HEELS BY PLACING PILLOWS UNDER CALVES UNLESS OTHERWISE CONTRAINDICATED -PRESSURE REDISTRIBUTIONS SURFACE THERAPY -TURN AND REPOSITION Q2H -CONTINUE TO FOLLOW RD RECOMMENDATIONS ALL ABOVE RECOMMENDATIONS DISCUSSED WITH PRIMARY RN. WILL FOLLOW UP PT Q7-10 DAYS. PLEASE CONTACT WOUND CARE NURSE FOR ANY QUESTION AND CHANGE OF WOUND CONDITION.
[2018-06-26 12:00] VITALS: BP 105/67
--- NOTE | 2018-06-26 12:00 | NUR ---
VITALS DONE, PATIENT REPOSITION IN BED, PATIENT RESTING COMFORTABLY, NO SEIZURE ACTIVITY NOTED, G TUBE FEEDING ONGOING, IV FLUID INFUSING, IV SITE WITHIN NORMAL LIMITS, ARM BOARD APPLIED TO POSITION IV.
[2018-06-26] MEDS ORDERED: MAGNESIUM OXIDE 400 MG TAB PO SCH (14:30)
--- NOTE | 2018-06-26 15:28 | NUR ---
CALLED [facility] AND SPOKE WITH CHANCE DOVER AND INFORMED HER THAT PT DOES HAVE ECOLI MDRO IN THE URINE AND INQUIRED IF PT COULD RETURN TO THE FACILITY IF ON PO ABX. SHE STATED SHE WILL FOLLOW UP WITH SPINNING FRAME FIXER AND HAVE HER CALL WITH AN ANSWER.
[2018-06-26 16:00] VITALS: BP 116/74
--- NOTE | 2018-06-26 18:22 | NUR ---
LOOSE BOWEL MOVEMENT X 1 PERICARE DONE. DIAPER CHANGED, POSITION CHANGED PATIENT TOLERATED IT WELL
--- NOTE | 2018-06-26 19:10 | NUR ---
REPORT GIVEN TO FRUIT BAR MAKER NURSE, PT IN STABLE CONDITION.
--- NOTE | 2018-06-26 19:15 | NUR ---
EXECUTIVE SALES MANAGER AT BEDSIDE FOR DIAPER CHANGE FOR BM, PT NOTED TO BE HAVING A SEIZURE LASTING APPROXIMATELY 45 SECONDS, ATIVAN 1MG GIVEN PER PRN ORDER, DR BOWENS NOTIFIED, LABOR AND DELIVERY NURSE NURSE NOTIFIED
[2018-06-26] MEDS ORDERED: HYDRAGUARD CREAM TP PRN (19:20)
[2018-06-26 20:00] VITALS: BP 105/72
[2018-06-26] MEDS: ZONISAMIDE 100 MG GT SCH (20:38)
--- NOTE | 2018-06-26 20:45 | NUR ---
220ML OF RESIDUAL NOTED, STOPPED G-TUBE FEEDING, WILL CHECK RESIDUAL HOURLY. ADMINISTERED MEDICATIONS THROUGH G-TUBE WITH 10ML WATER FLUSH IN BETWEEN EACH THEN 50MLs AFTER LAST MEDICATION WAS ADMINISTERED. PT TOLERATED WELL. PT STABLE, NO SIGNS OF DISTRESS NOTED AT THIS TIME. BED IN LOWEST POSITION, BED ALARM ON. CALL LIGHT WITHIN REACH, WILL CONTINUE TO MONITOR.
--- NOTE | 2018-06-26 22:05 | NUR ---
ABOUT 200 ML OF RESIDUAL NOTED, STILL HOLDING TUBE FEEDING. NO SIGNS OF DISTRESS NOTED AT THIS TIME. BED IN LOWEST POSITION, BED ALARM ON. CALL LIGHT WITHIN REACH, WILL CONTINUE TO MONITOR.
--- NOTE | 2018-06-26 23:21 | NUR ---
ABOUT 190 ML OF RESIDUAL NOTED, STILL HOLDING TUBE FEEDING. NO SIGNS OF DISTRESS NOTED AT THIS TIME. BED IN LOWEST POSITION, BED ALARM ON. CALL LIGHT WITHIN REACH, WILL CONTINUE TO MONITOR.
[2018-06-27] VITALS: BP 115/73
[2018-06-27] MEDS: NACL 0.9% 1,000 ML IV SCH ×2 (00:06→10:27)
--- NOTE | 2018-06-27 00:20 | NUR ---
ABOUT 150 ML OF RESIDUAL NOTED, STILL HOLDING TUBE FEEDING. NO SIGNS OF DISTRESS NOTED AT THIS TIME. BED IN LOWEST POSITION, BED ALARM ON. CALL LIGHT WITHIN REACH, WILL CONTINUE TO MONITOR.
--- NOTE | 2018-06-27 01:10 | NUR ---
ABOUT 130 ML OF RESIDUAL NOTED, STILL HOLDING TUBE FEEDING. SPOKE TO DR LOPEZ REGARDING TUBE FEEDING AND WATERY BOWEL MOVEMENTS, DR AZAR SAID TO HOLD TUBE FEEDINGS FOR NOW.
[2018-06-27] MEDS: HYDRAGUARD CREAM TP SCH ×2 (01:15→13:57)
--- NOTE | 2018-06-27 03:00 | NUR ---
PT HAD BM. PT WAS CLEANED AGAIN. RE-APPLIED HYDRAGUARD.
[2018-06-27 04:00] VITALS: BP 125/79
[2018-06-27] MEDS: MIDODRINE 5 MG TAB GT SCH ×2 (05:53→14:12)
[2018-06-27] MEDS: ERTAPENEM SODIUM 1,000 MG in NACL 0.9% 50 ML IV SCH (05:53)
[2018-06-27] MEDS: Zonisamide 100 MG CAPSULES GT SCH (05:54)
--- NOTE | 2018-06-27 06:46 | NUR ---
STARTED NEW IV TO LEFT HAND, 24G PT TOLERATED WELL.
--- NOTE | 2018-06-27 07:45 | NUR ---
ENDORSED PT TO DAY SHIFT RN FOR CONTINUITY OF CARE. PT IN STABLE CONDITION.
--- NOTE | 2018-06-27 07:46 | NUR ---
REPORT RECEIVED FROM BEAN PICKER MACHINE OPERATOR NURSE, PT SLEEPING QUIETLY IN NAD, RESP EVEN UNLABORED ON RA, SKIN WARM DRY COLOR WNL, PT AROUSES BY VOICE, APPEARS IN NO PAIN OR DISCOMFORT, PLAN OF CARE REVIEWED, NO IMMEDIATE NEEDS AT THIS TIME, ALL SAFETY MEASURES IN PLACE, WILL CONTINUE TO MONITOR.
[2018-06-27 08:00] VITALS: BP 115/78
[2018-06-27] MEDS: POTASSIUM CHLORIDE 20% 40 MEQ/15 ML UDC GT SCH (08:56)
[2018-06-27] MEDS: TAMSULOSIN 0.4 MG CAP PO SCH (08:57)
[2018-06-27] MEDS: MULTIVITAMIN 5 ML ORASYR GT SCH (08:57)
[2018-06-27] MEDS: FAMOTIDINE 20 MG TAB GT SCH (08:57)
[2018-06-27] MEDS: LACTOBACILLUS RHAMNOSUS GG 1 EACH CAP GT SCH (08:57)
[2018-06-27] MEDS: SODIUM PHOS / POTASSIUM PHOS 1 PKT PDR PO SCH (08:57)
[2018-06-27] MEDS: BENZTROPINE 1 MG TAB PO SCH (08:57)
[2018-06-27] MEDS: CHOLECALCIFEROL 1,000 IU TAB GT SCH (08:58)
[2018-06-27] MEDS: CALCIUM CARB/VIT-D 500 MG/200 IU 1 TAB GT SCH (08:58)
[2018-06-27] MEDS: ASPIRIN 81 MG TAB.CHEW GT SCH (08:58)
[2018-06-27] MEDS: POLYETHYLENE GLYCOL 17 GM/PKT GT SCH (09:00)
[2018-06-27] MEDS: DOCUSATE 100 MG/10 ML UDC GT SCH (09:00)
[2018-06-27] MEDS ORDERED: MAGNESIUM OXIDE 400 MG TAB PO SCH (09:00)
--- NOTE | 2018-06-27 09:15 | NUR ---
RESIDUAL 80ML, AM MEDS GIVEN VIA GT, PT NOLBERTO WELL, NO SZ ACTIVITY NOTED AT THIS TIME, ALL SAFETY MEASURES IN PLACE, WILL CONTINUE TO MONTIOR.
[2018-06-27] MEDS: NEOMYCIN/POLYMYXIN/HC OT SOL. 10 ML BTL RIGHT EAR SCH ×2 (09:28→13:57)
--- NOTE | 2018-06-27 10:41 | NUR ---
ORDER FOR SNF FOR IV ANTIBIOTICS. FAXED INQUIRY TO [facility], .
--- NOTE | 2018-06-27 10:50 | NUR ---
ROCEPHINE IV ANTIBIOTIC STARTED PER DR GARCIA, WILL CLOSELY MONITOR FOR ALLERGIC REACTION.
--- NOTE | 2018-06-27 11:30 | NUR ---
NO S/S OF ALLERGIC REACTIONS NOTED AFTER ROCEPHIN. DR GARCIA NOTIFIED
--- NOTE | 2018-06-27 11:56 | NUR ---
RECEIVED A CALL FROM ASHLEY FROM [facility]. THEY WILL TAKE THE PATIENT. SHE WILL GO TO ROOM 209B UNDER DR DUVAL. ASHLEY WILL SET UP [facility] TRANSPORT FOR 2P.Xiang DACOSTA RN INFORMED. SHE WILL CALL THE [facility] AND INFORM THEM.
[2018-06-27 12:00] VITALS: BP 128/72
[2018-06-27] MEDS ORDERED: ROC2I IV (12:07)
[2018-06-27] MEDS ORDERED: [UNRECOGNIZED DRUG - OTHER] GT (12:34)
[2018-06-27] MEDS ORDERED: MAGN241.1 PO (12:34)
--- NOTE | 2018-06-27 12:58 | NUR ---
CALLED [facility] [phone], REPORT GIVEN TO VE, VE TO VERIFY WITH ASHLEY REGARDING TRANSPORTATION ARRANGEMENT. VE WILL CALL BACK WITH CONFIRMATION.
--- NOTE | 2018-06-27 13:03 | NUR ---
LEXI Moser/Pily [phone] CALLED, FLETCHER BELLO NOTIFIED OF PT BEING TRANSFERRED TO [facility] FOR IVABX FOR 7DAYS. FLETCHER VERBALIZED FULL UNDERSTANDING.
--- NOTE | 2018-06-27 15:17 | NUR ---
RECEIVED A CALL FROM ASHLEY FROM [facility]. BRYSON WILL AIR OPERATIONS MANAGER PATIENT AT 4P.Xiang BERNSTEIN RN CHARGE NURSE AWARE.
--- NOTE | 2018-06-27 15:20 | NUR ---
PT RESTING QUIETLY IN NAD, RESP EVEN UNLABORED, SKIN WARM DRY COLOR WNL, NO SZ ACTIVITY NOTED, WILL CONTINUE TO MONITOR.
--- NOTE | 2018-06-27 15:22 | NUR ---
PT HR SLOWS DOWN TO 41-48 OCCASIONALLY FOR SHORT PERIODS, PT RECOVERS TO 70'S WITHOUT INTERVENTION, DR GARCIA AWARE, STILL OK TO DC TO SNF.
--- NOTE | 2018-06-27 16:04 | NUR ---
REPORT GIVEN TO BRYSON [place], PT TAKEN TO [facility] VIA [facility] AT THIS TIME.
== END 2018-06-27 16:05 | DRG 689 ==
LOC: MED 22:16 → MIC 06-24 00:59 → MMU 06-24 04:18 → MIC 06-24 04:21 → MTU 06-25 06:30
PROVIDERS: ADMIT General Practice; ATTEND General Practice
DX: N39.0 Urinary tract infection, site not specified (principal); N17.0 Acute kidney failure with tubular necrosis; G93.41 Metabolic encephalopathy; G91.9 Hydrocephalus, unspecified; E87.1 Hypo-osmolality and hyponatremia; H60.501 Unspecified acute noninfective otitis externa, right ear; G40.909 Epilepsy, unspecified, not intractable, without status epilepticus; N20.0 Calculus of kidney; E83.42 Hypomagnesemia; K21.9 Gastro-esophageal reflux disease without esophagitis; I10 Essential (primary) hypertension; K31.84 Gastroparesis; Z88.6 Allergy status to analgesic agent; Z88.1 Allergy status to other antibiotic agents; Z88.0 Allergy status to penicillin; Z88.2 Allergy status to sulfonamides; H66.91 Otitis media, unspecified, right ear; G80.9 Cerebral palsy, unspecified; Z22.322 Carrier or suspected carrier of Methicillin resistant Staphylococcus aureus; E83.39 Other disorders of phosphorus metabolism; E86.0 Dehydration
CPT/HCPCS: 36415; 70450; 71045; 74150; 76770; 80048; 80053; 80305; 81001; 81025; 82140; 82150; 82550; 83036; 83605; 83690; 83735; 83880; 84100; 84134; 84439; 84443; 84484; 85025; 85610; 85730; 87040; 87081; 87086; 87186; 93005; 96361; 96365; 99285; C1758; J0696; J1335; J2060; J3475; J7030; J7060; Q0092

== ENCOUNTER 2018-07-01 02:25 | Inpatient (IN) | payer OTHER, MEDICAID ==
[~2018-07-01] VITALS: Ht 157.5 cm; Wt 44.9 kg
[~2018-07-01 02:25] MED LIST changes: +ASPI81CT89 GT; -BISA10SU1 RC; -BISM262O11 PO; -CALC-105 PO; +CALC-53 GT; +DOCU100C16 GT; -LACO100T PO; +LAM200 GT; -LAMO150T GT; -LORA10OD44 PO; +MAGN241.1 PO; -MEGE40SU6 GT; +MIRABULK GT; +MULT-405 PO; -ONDA8TAB13 PO; +PRO5 GT; -RANI-287 PO; +ROC2I IV; -SUCR1TAB35 PO; +VITD1000 GT; -[UNRECOGNIZED DRUG - CODE] PO; -[UNRECOGNIZED DRUG - CODE] TP; +[UNRECOGNIZED DRUG - OTHER] GT
[2018-07-01 02:29] VITALS: BP 151/82
[2018-07-01] MEDS ORDERED: NACL 0.9% 1,000 ML IV SCH (02:47)
[2018-07-01] MEDS ORDERED: ACETAMINOPHEN 650 MG SUPP RC ONE (02:50)
[2018-07-01] MEDS ORDERED: LORazepam 2 MG/ML VIAL IVP ONE (02:50)
[2018-07-01] MEDS ORDERED: VANCOMYCIN 1,000 MG VIAL ONE ×2 (03:11→23:17)
[2018-07-01] MEDS: VANCOMYCIN 1,000 MG in DEXTROSE 5% 250 ML IV ONE ×2 (03:14→03:32)
[2018-07-01 03:39] LABS: BASOPHILS # (AUTO) 0.1 K/uL (0.00-0.22); BASOPHILS % (AUTO) 0.4 % (0.0-2.0); HEMATOCRIT 41.8 % (36-48); HEMOGLOBIN 13.9 g/dL (12.0-16.0); LYMPHOCYTES # (AUTO) 1.4 K/uL (2.5-16.5); LYMPHOCYTES % (AUTO) 10.8 % (20.5-51.1); MEAN CORPUSCULAR HEMOGLOBIN 32 pg (27-31); MEAN CORPUSCULAR HGB CONC 33 g/dL (33-37); MONOCYTES # (AUTO) 1.3 K/uL (0.8-1.0); MONOCYTES % (AUTO) 9.6 % (1.7-9.3); NEUTROPHILS # (AUTO) 10.3 K/uL (1.8-7.7); NEUTROPHILS % (AUTO) 79.2 % (42.2-75.2); PLATELET COUNT (AUTO) 284 K/uL (140-450); RED BLOOD CELL COUNT(AUTO) 4.31 MIL/uL (4.20-5.40); RED CELL DISTRIBUTION WIDTH 13.6 % (11.6-13.7)
[2018-07-01 04:00] LABS: ALBUMIN 3.2 g/dL (3.4-5.0); CARBON DIOXIDE 26.4 mmol/L (21-32); CREATININE 0.6 mg/dL (0.6-1.3); POTASSIUM 3.4 mmol/L (3.5-5.1); TOTAL BILIRUBIN 0.3 mg/dL (0.0-1.0)
[2018-07-01 04:25] LABS: APPEARANCE,URINE SL CLOUDY (CLEAR); BILIRUBIN,URINE NEGATIVE (NEGATIVE); BLOOD, URINE NEGATIVE (NEGATIVE); COLOR,URINE YELLOW (YELLOW); LEUKOCYTE ESTERASE ,URINE NEGATIVE (NEGATIVE); NITRITE, URINE NEGATIVE (NEGATIVE); PH,URINE 7.5 (5.0-9.0); UGLUCOSE NEGATIVE (NEGATIVE)
[2018-07-01 05:09] LABS: WBC,URINE 0-5 (RARE) /HPF (0-5)
[2018-07-01 05:10] LABS: RBC,URINE 0-5 (RARE) /HPF (0-5)
[2018-07-01] MEDS: NACL 0.9% 1,000 ML IV SCH ×2 (06:43→21:01)
[2018-07-01] MEDS ORDERED: HYDROcodone/APAP 7.5/325 MG 1 TAB PO PRN (06:45)
[2018-07-01] MEDS ORDERED: ACETAMINOPHEN 325 MG TAB PO PRN (06:45)
[2018-07-01] MEDS ORDERED: ONDANSETRON 4 MG/2 ML VIAL IM/IVP PRN (06:45)
[2018-07-01] MEDS ORDERED: DOCUSATE SODIUM 100 MG GELCAP PO PRN (06:45)
[2018-07-01 07:45] VITALS: BP 135/81
[2018-07-01] MEDS ORDERED: BENZTROPINE 1 MG TAB PO SCH (09:44)
[2018-07-01] MEDS ORDERED: FAMOTIDINE 20 MG TAB GT SCH (09:45)
[2018-07-01] MEDS ORDERED: KCL 20 MEQ/WATER INJ PREMIX 200 ML IV SCH (10:00)
[2018-07-01 11:11] LABS: PROTHROMBIN TIME 9.9 secs (10.8-13.4)
[2018-07-01 11:24] LABS: CHOL/HDL RATIO 1.9 (1-4.5); MAGNESIUM 1.8 mg/dL (1.8-2.4); THYROID STIMULATING HORMONE 0.7 uIU/mL (0.34-3.74)
[2018-07-01] MEDS: LORazepam 2 MG/ML VIAL IVP PRN ×4 (11:51→23:54)
[2018-07-01] MEDS: LACTOBACILLUS RHAMNOSUS GG 1 EACH CAP PO SCH (11:56)
[2018-07-01] MEDS: FAMOTIDINE 20 MG TAB GT SCH (11:57)
[2018-07-01 12:00] VITALS: BP 115/73
[2018-07-01] MEDS ORDERED: levETIRAcetam 100 MG/ML ORASYR GT ONE (12:35)
[2018-07-01] MEDS ORDERED: GABAPENTIN 100 MG CAP PO SCH (13:00)
[2018-07-01 13:17] LABS: CARBON DIOXIDE 22.4 mmol/L (21-32); CREATININE 0.5 mg/dL (0.6-1.3); POTASSIUM 3.4 mmol/L (3.5-5.1)
[2018-07-01 16:00] VITALS: BP 104/69
[2018-07-01 20:00] VITALS: BP 124/83
[2018-07-01] MEDS ORDERED: ZONISAMIDE 300 MG PO SCH (21:00)
[2018-07-01] MEDS: BENZTROPINE 1 MG TAB PO SCH (21:11)
[2018-07-01] MEDS: ZONISAMIDE 100 MG PO SCH (21:20)
[2018-07-01] MEDS ORDERED: VANCOMYCIN PER PHARMACY MC PRN (22:20)
[2018-07-01] MEDS ORDERED: VANCOMYCIN 1GM/DEXT 5% PREMIX 200 ML IV ONE (23:00)
[2018-07-01 23:46] VITALS: BP 120/77
[2018-07-02 04:12] VITALS: BP 135/65
[2018-07-02 06:19] LABS: T4 (THYROXINE) 8.8 ug/dL (4.5-12.0)
[2018-07-02 06:40] LABS: BASOPHILS # (AUTO) 0.1 K/uL (0.00-0.22); RED BLOOD CELL COUNT(AUTO) 4.11 MIL/uL (4.20-5.40)
[2018-07-02 06:44] LABS: BASOPHILS % (AUTO) 0.7 % (0.0-2.0); EOSINOPHILS % (AUTO) 0.3 % (0.0-4.0); HEMATOCRIT 40.2 % (36-48); HEMOGLOBIN 13.4 g/dL (12.0-16.0); LYMPHOCYTES # (AUTO) 1.7 K/uL (2.5-16.5); LYMPHOCYTES % (AUTO) 11.5 % (20.5-51.1); MEAN CORPUSCULAR HEMOGLOBIN 33 pg (27-31); MEAN CORPUSCULAR HGB CONC 33 g/dL (33-37); MEAN CORPUSCULAR VOLUME 97.8 fL (80-94); MONOCYTES # (AUTO) 0.8 K/uL (0.8-1.0); MONOCYTES % (AUTO) 5.7 % (1.7-9.3); NEUTROPHILS % (AUTO) 81.8 % (42.2-75.2); PLATELET COUNT (AUTO) 226 K/uL (140-450); RED CELL DISTRIBUTION WIDTH 13.7 % (11.6-13.7); WHITE BLOOD COUNT (AUTO) 14.7 K/uL (4.8-10.8)
[2018-07-02 07:25] LABS: ANION GAP 14.6 (8-16); CARBON DIOXIDE 21.3 mmol/L (21-32); CREATININE 0.4 mg/dL (0.6-1.3); POTASSIUM 3.9 mmol/L (3.5-5.1)
[2018-07-02 08:00] VITALS: BP 132/71
[2018-07-02] MEDS: LORazepam 2 MG/ML VIAL IVP PRN (08:41)
[2018-07-02] MEDS: BENZTROPINE 1 MG TAB PO SCH ×2 (08:44→21:27)
[2018-07-02] MEDS: ASPIRIN 81 MG TAB.CHEW GT SCH (08:44)
[2018-07-02] MEDS: FAMOTIDINE 20 MG TAB GT SCH (08:44)
[2018-07-02] MEDS: LACTOBACILLUS RHAMNOSUS GG 1 EACH CAP PO SCH (08:44)
[2018-07-02] MEDS: POLYETHYLENE GLYCOL 17 GM/PKT GT SCH (08:45)
[2018-07-02] MEDS: Zonisamide 100 MG CAPSULE PO SCH (08:47)
[2018-07-02] MEDS ORDERED: ZONISAMIDE 200 MG PO SCH (09:00)
[2018-07-02] MEDS ORDERED: LACTULOSE 20 GM/30 ML UDC GT SCH (09:00)
[2018-07-02] MEDS: VANCOMYCIN 750 MG in DEXTROSE 5% 250 ML IV SCH ×2 (11:35→23:35)
[2018-07-02] MEDS: NACL 0.9% 1,000 ML IV SCH (11:35)
[2018-07-02 12:00] VITALS: BP 106/70
[2018-07-02 16:00] VITALS: BP 114/64
[2018-07-02 20:00] VITALS: BP 124/63
[2018-07-02] MEDS: ZONISAMIDE 100 MG PO SCH (21:28)
[2018-07-02 23:47] VITALS: BP 126/74
[2018-07-03] MEDS: NACL 0.9% 1,000 ML IV SCH ×2 (01:37→05:21)
[2018-07-03 03:45] VITALS: BP 102/67
[2018-07-03 07:49] LABS: ANION GAP 13.1 (8-16); CARBON DIOXIDE 23.5 mmol/L (21-32); CREATININE 0.6 mg/dL (0.6-1.3); POTASSIUM 3.6 mmol/L (3.5-5.1)
[2018-07-03 07:50] LABS: BASOPHILS % (AUTO) 0.3 % (0.0-2.0); EOSINOPHILS % (AUTO) 0.4 % (0.0-4.0); LYMPHOCYTES # (AUTO) 0.9 K/uL (2.5-16.5); LYMPHOCYTES % (AUTO) 13.3 % (20.5-51.1); MEAN CORPUSCULAR HEMOGLOBIN 32 pg (27-31); MEAN CORPUSCULAR HGB CONC 33 g/dL (33-37); MEAN CORPUSCULAR VOLUME 96.9 fL (80-94); MONOCYTES # (AUTO) 0.5 K/uL (0.8-1.0); MONOCYTES % (AUTO) 7.3 % (1.7-9.3); NEUTROPHILS # (AUTO) 5.5 K/uL (1.8-7.7); NEUTROPHILS % (AUTO) 78.7 % (42.2-75.2); PLATELET COUNT (AUTO) 237 K/uL (140-450); RED BLOOD CELL COUNT(AUTO) 3.71 MIL/uL (4.20-5.40); RED CELL DISTRIBUTION WIDTH 13.6 % (11.6-13.7)
[2018-07-03 08:00] VITALS: BP 105/56
[2018-07-03 09:04] LABS: MAGNESIUM 1.8 mg/dL (1.8-2.4); PHOSPHORUS 2.1 mg/dL (2.5-4.9)
[2018-07-03] MEDS: POLYETHYLENE GLYCOL 17 GM/PKT GT SCH (09:21)
[2018-07-03] MEDS: FAMOTIDINE 20 MG TAB GT SCH (09:22)
[2018-07-03] MEDS: BENZTROPINE 1 MG TAB PO SCH ×2 (09:22→21:35)
[2018-07-03] MEDS: ASPIRIN 81 MG TAB.CHEW GT SCH (09:22)
[2018-07-03] MEDS: LACTOBACILLUS RHAMNOSUS GG 1 EACH CAP PO SCH (09:22)
[2018-07-03] MEDS: Zonisamide 100 MG CAPSULE PO SCH (09:24)
[2018-07-03] MEDS ORDERED: SODIUM PHOS / POTASSIUM PHOS 1 PKT PDR PO SCH (10:30)
[2018-07-03] MEDS ORDERED: LACTULOSE 20 GM/30 ML UDC PO SCH ×2 (10:31→21:00)
[2018-07-03 12:00] VITALS: BP 108/67
[2018-07-03 16:00] VITALS: BP 115/52
[2018-07-03 20:00] VITALS: BP 103/58
[2018-07-03] MEDS: ZONISAMIDE 100 MG PO SCH (21:36)
[2018-07-04] VITALS: BP 108/68
[2018-07-04] MEDS: NACL 0.9% 1,000 ML IV SCH (01:37)
[2018-07-04 04:00] VITALS: BP 117/64
[2018-07-04 07:01] LABS: BASOPHILS % (AUTO) 0.5 % (0.0-2.0); EOSINOPHILS % (AUTO) 0.4 % (0.0-4.0); HEMOGLOBIN 11.7 g/dL (12.0-16.0); LYMPHOCYTES # (AUTO) 0.5 K/uL (2.5-16.5); LYMPHOCYTES % (AUTO) 5.7 % (20.5-51.1); MEAN CORPUSCULAR HEMOGLOBIN 33 pg (27-31); MEAN CORPUSCULAR HGB CONC 33 g/dL (33-37); MEAN CORPUSCULAR VOLUME 98.2 fL (80-94); MONOCYTES # (AUTO) 0.5 K/uL (0.8-1.0); MONOCYTES % (AUTO) 5.6 % (1.7-9.3); NEUTROPHILS # (AUTO) 7.6 K/uL (1.8-7.7); NEUTROPHILS % (AUTO) 87.8 % (42.2-75.2); PLATELET COUNT (AUTO) 230 K/uL (140-450); RED BLOOD CELL COUNT(AUTO) 3.56 MIL/uL (4.20-5.40); RED CELL DISTRIBUTION WIDTH 14.2 % (11.6-13.7); WHITE BLOOD COUNT (AUTO) 8.7 K/uL (4.8-10.8)
[2018-07-04 07:53] LABS: ANION GAP 16.7 (8-16); CARBON DIOXIDE 20.5 mmol/L (21-32); CREATININE 0.7 mg/dL (0.6-1.3); POTASSIUM 3.2 mmol/L (3.5-5.1)
[2018-07-04 08:00] VITALS: BP 118/69
[2018-07-04] MEDS ORDERED: VANCOMYCIN 750 MG in DEXTROSE 5% 250 ML IV SCH (08:00)
[2018-07-04] MEDS: LACTOBACILLUS RHAMNOSUS GG 1 EACH CAP PO SCH (09:14)
[2018-07-04] MEDS: POLYETHYLENE GLYCOL 17 GM/PKT GT SCH (09:15)
[2018-07-04] MEDS: FAMOTIDINE 20 MG TAB GT SCH (09:15)
[2018-07-04] MEDS: BENZTROPINE 1 MG TAB PO SCH ×2 (09:15→20:28)
[2018-07-04] MEDS: ASPIRIN 81 MG TAB.CHEW GT SCH (09:15)
[2018-07-04] MEDS: Zonisamide 100 MG CAPSULE PO SCH (09:18)
[2018-07-04 12:00] VITALS: BP 119/63
[2018-07-04] MEDS ORDERED: NACL 0.9% 500 ML IV SCH (12:10)
[2018-07-04] MEDS ORDERED: LAM200 GT (12:12)
[2018-07-04] MEDS ORDERED: FAMO20TA13 GT (12:12)
[2018-07-04] MEDS ORDERED: KCL 20 MEQ/WATER INJ PREMIX 200 ML IV SCH (13:00)
[2018-07-04 16:00] VITALS: BP 112/62
[2018-07-04 20:00] VITALS: BP 112/57
[2018-07-04] MEDS: ZONISAMIDE 100 MG PO SCH (20:29)
== END 2018-07-04 20:50 | disposition home or self-care (01) | DRG 441 ==
LOC: MED 02:25 → MTU 06:47
PROVIDERS: ADMIT General Practice; ATTEND General Practice
DX: K72.90 Hepatic failure, unspecified without coma (principal); R65.11 Systemic inflammatory response syndrome (SIRS) of non-infectious origin with acute organ dysfunction; G91.9 Hydrocephalus, unspecified; E44.1 Mild protein-calorie malnutrition; N13.2 Hydronephrosis with renal and ureteral calculous obstruction; Z68.1 Body mass index [BMI] 19.9 or less, adult; E87.6 Hypokalemia; K21.9 Gastro-esophageal reflux disease without esophagitis; G80.9 Cerebral palsy, unspecified; E11.9 Type 2 diabetes mellitus without complications; F79 Unspecified intellectual disabilities; G40.909 Epilepsy, unspecified, not intractable, without status epilepticus; I50.9 Heart failure, unspecified; I11.0 Hypertensive heart disease with heart failure; Z88.1 Allergy status to other antibiotic agents; Z88.0 Allergy status to penicillin; Z88.2 Allergy status to sulfonamides; Z87.440 Personal history of urinary (tract) infections; Z93.1 Gastrostomy status; Z98.2 Presence of cerebrospinal fluid drainage device; Z88.8 Allergy status to other drugs, medicaments and biological substances; Z79.899 Other long term (current) drug therapy; Z79.84 Long term (current) use of oral hypoglycemic drugs; Z22.322 Carrier or suspected carrier of Methicillin resistant Staphylococcus aureus
CPT/HCPCS: 36415; 71045; 76700; 80048; 80053; 80202; 81001; 82140; 82550; 83036; 83605; 83690; 83735; 83880; 84100; 84436; 84443; 84479; 84484; 85025; 85610; 85730; 87040; 87081; 87086; 93005; 96365; 96366; 96375; 99285; C1758; J0696; J1644; J2060; J3370; J3480; J7030; J7060; Q0092